=== PATIENT | female | born 2000 | race Caucasian/White ===

== ENCOUNTER 2024-01-31 15:27 | Emergency (ER) | payer SELFPAY ==
[2024-01-31 15:35] VITALS: BP 138/84; PULSE 83; RESP 14; TEMP 36.9; O2SAT 98; BMI 18.1
--- NOTE | 2024-01-31 15:44 | CTR_ITS ---
PROCEDURE INFORMATION: Exam: CT Abdomen And Pelvis With Contrast Exam date and time: 01/31/2024 4:41 PM Age: 23 years old Clinical indication: Abdominal pain; Localized; Left lower quadrant (llq); Patient HX: Bloating and constipation with llq abd pain for two weeks TECHNIQUE: Imaging protocol: Computed tomography of the abdomen and pelvis with contrast. Radiation optimization: All CT scans at this facility use at least one of these dose optimization techniques: automated exposure control; mA and/or kV adjustment per patient size (includes targeted exams where dose is matched to clinical indication); or iterative reconstruction. Contrast material: OMNI 350; Contrast volume: 80 ml; Contrast route: INTRAVENOUS (IV); COMPARISON: No relevant prior studies available. RADIATION DOSE METRICS: Total DLP (mGy-cm): 295 FINDINGS: Liver: No acute findings Gallbladder and bile ducts: Gallbladder mildly distended with mild intrahepatic ductal dilatation, likely postprandial state. No stones or acute inflammation. Pancreas: No ductal dilation. Spleen: No splenomegaly. Adrenal glands: No mass. Kidneys and ureters: No stones or hydronephrosis. Stomach and bowel: No obstruction. Nonspecific fluid-filled loops of small bowel. Appendix: No evidence of appendicitis. Intraperitoneal space: No free air. No significant fluid collection. Vasculature: No abdominal aortic aneurysm. Lymph nodes: No enlarged lymph nodes. Urinary bladder: Incompletely distended. Reproductive: No acute findings. Bones/joints: No acute findings. Soft tissues: No acute findings. CT/CT abdomen pelvis w con* [id number] IMPRESSION: No acute findings.
--- NOTE | 2024-01-31 15:45 | ED_ITS ---
HPI - Abdominal Pain 2 General: Chief Complaint: Abdominal Pain Stated Complaint: lower abd pain Time Seen by Provider: 01/31/24 15:43 History of Present Illness: 23-year-old female comes in today with l ower abdominal pain and constipation. Patient reports on the she was ill with 1 episode of vomiting and then 2 days with the diarrhea. Patient reports since then she has been constipated and have had increasing pressure in her lower abdomen. Patient has a history of ovarian cyst and gastroparesis. Patient appears in mild pain. Patient endorses routine tobacco use smoking 1/2 to 1 pack a day. And daily THC use for pain. Patient describes general body aches that she uses her THC for. Patient denies any [id number] use of medications or laxatives. Patient states some continued nausea but no more vomiting since attempt. MD elicited complaint: abdominal pain Pertinent past history: constipation Onset (ago): day(s) Pain Consistency: constant Location: Diffuse Severity: mild Quality: dull Radiation: none Exacerbating factors: nothing Relieving factors: nothing Associated Symptoms: Reports change in bowel habits and constipation Review of Systems 2 GI: Reports: constipation and change in bowel habits Physical Exam 2 Const: COMMON NORMALS: alert HENMT: HEAD & SCALP: normal to inspection Neck/C-Spine: COMMON NORMALS: full ROM Chest: COMMONS NORMALS: normal inspection of the chest Resp: COMMON NORMALS: normal respiratory effort Cardio: COMMON NORMALS: regular rate RATE: regular rate GI: COMMON NORMALS: Soft to palpation and non-tender PALPATION: Yes Soft to palpation : COMMON NORMALS: Yes no CVA tenderness BLADDER/KIDNEY EXAM: Yes no CVA tenderness Back/Pelvis: COMMON NORMALS: no CVA tenderness and thoracic and lumbar spine normal to inspection Extremity: COMMON NORMALS: full ROM Neuro: SENSORIUM/ORIENTATION: Yes alert Skin: COMMON NORMALS: turgor normal GENERAL SKIN EXAM: turgor normal Course 2 Vital Signs: Vital signs: Vital Signs Temperature 98.4 F 01/31/24 15:35 Pulse Rate 83 01/31/24 15:35 Respiratory Rate 14 01/31/24 15:35 Blood Pressure 138/84 01/31/24 15:35 Pulse Oximetry 98 01/31/24 15:35 Oxygen Delivery Me thod Room Air 01/31/24 15:35 MDM - Abdominal Pain Medical Decision Making 23-year-old female comes in today with lower abdominal pain generalized. Patient reports pain is dull. Patient also reports some persistent nausea. Patient has a medical history for gastroparesis and ovarian cyst. On exam abdomen is soft with generalized tenderness. Bowel sounds are decreased. No CVA tenderness. Vital signs are normal. Differential diagnosis includes but not limited to constipation, ovarian cyst, UTI, dehydration, colitis. CBC and CMP were unremarkable. CT of the abdomen pelvis noted no acute abnormalities. Patient was given 1 L of IV fluids and 4 mg of Zofran with improvement of symptoms. Patient was encouraged to drink plenty of water and fluids. Patient recommended to follow-up with primary care or return to ER for worsening symptoms. Patient reported understanding. Lab Data 01/31/24 15:54 01/31/24 15:54 Labs/Radiology: Radiology Impressions Abdomen/Pelvis CT 01/31/24 15:44 IMPRESSION: No acute findings. Laboratory Results WBC 8.23 10^3/uL (3.29-11.43) 01/31/24 15:54 RBC 4.74 10^6/uL (3.85-5.65) 01/31/24 15:54 Hgb 15.90 g/dL (11.27-16.99) 01/31/24 15:54 Hct 45.7 % (36-47) 01/31/24 15:54 MCV 96.4 fl (85-98) 01/31/24 15:54 MCH 33.5 pg (27-33) H 01/31/24 15:54 MCHC 34.8 g/dL (30-55) 01/31/24 15:54 RDW 12.4 % (12.1-15.1) 01/31/24 15:54 Plt Count 330 10^3/cmm (157-399) 01/31/24 15:54 MPV 9.6 fL (7.4-10.4) 01/31/24 15:54 Neut % (Auto) 68.5 % 01/31/24 15:54 Lymph % (Auto) 23.3 % 01/31/24 15:54 [place] % (Auto) 6.1 % 01/31/24 15:54 Eos % (Auto) 1.0 % 01/31/24 15:54 Baso % (Auto) 1.0 % 01/31/24 15:54 Neut # (Auto) 5.64 10^3/uL (1.8-7.7) 01/31/24 15:54 Lymph # (Auto) 1.9 10^3/uL (0.8-4.8) 01/31/24 15:54 [place] # (Auto) 0.5 10^3/uL (0.2-0.9) 01/31/24 15:54 Eos # (Auto) 0.1 10^3/uL (0.0-0.8) 01/31/24 15:54 Baso # (Auto) 0.1 10^3/uL (0.0-0.1) 01/31/24 15:54 Nucleated RBC % (auto) 0 % 01/31/24 15:54 Nucleated RBCs # 0.0 /100WBC 01/31/24 15:54 Sodium 138 mmol/L (136-145) 01/31/24 15:54 Potassium 4.6 mmol/L (3.5-5.1) 01/31/24 15:54 Chloride 100 mmol/L (98-107) 01/31/24 15:54 Carbon Dioxide 27 mmol/L (22-29) 01/31/24 15:54 Anion Gap 15.6 (5-19) 01/31/24 15:54 BUN 10 mg/dL (6-20) 01/31/24 15:54 Creatinine 0.6 mg/dL (0.5-0.9) 01/31/24 15:54 GFR Calculation 121.8 mL/min (90-130) 01/31/24 15:54 Glucose 85 mg/dL (65-115) 01/31/24 15:54 Calculated Osmolality 284 mOsm/kg (285-295) L 01/31/24 15:54 Calcium 10.3 mg/dL (8.5-10.5) 01/31/24 15:54 Total Bilirubin 0.9 mg/dL (0.15-1.2) 01/31/24 15:54 AST 24 U/L (0-32) 01/31/24 15:54 ALT 26 U/L (0-33) 01/31/24 15:54 Alkaline Phosphatase 68 U/L (35-105) 01/31/24 15:54 C-Reactive Protein 3.0 mg/L (0.0-4.9) 01/31/24 15:54 Total Protein 8.1 g/dL (6.6-8.7) 01/31/24 15:54 Albumin 5.1 g/dL (3.5-5.2) 01/31/24 15:54 Globulin 3.0 g/dL (1.3-4.6) 01/31/24 15:54 Lipase 58 U/L (13-60) 01/31/24 15:54 HCG, Qual Negative (Negative) 01/31/24 15:54 Urine Color Yellow (Yellow) 01/31/24 15:45 Urine Appearance Clear (CLEAR) 01/31/24 15:45 Urine pH 6.5 (5-7) 01/31/24 15:45 Ur Specific [place] 1.015 (1.005-1.030) 01/31/24 15:45 Urine Protein Neg (Negative) 01/31/24 15:45 Urine Glucose (UA) Norm (Normal) 01/31/24 15:45 Urine Ketones Negative (Negative) 01/31/24 15:45 Urine Blood Neg (Negative) 01/31/24 15:45 Urine Nitrate Negative (Negative) 01/31/24 15:45 Urine Bilirubin Neg (Negative) 01/31/24 15:45 Urine Urobilinogen 1 mg/dL (Negative) H 01/31/24 15:45 Ur Leukocyte Esterase Negative (Negative) 01/31/24 15:45 All radiology interpretation(s) finalized by discharge Discharge Plan Discharge Patient Disposition: Home Clinical Impression: Abdominal pain Qualifiers: Abdominal location: generalized Qualified Code(s): R10.84 - Generalized abdominal pain Condition: Stable Prescriptions: New ondansetron 4 mg tablet,disintegrating 4 mg PO Q8H PRN (Reason: nausea and vomiting) Qty: 7 0RF Discharge Orders: Discharge ED (Routine); Ordered 01/31/24 Ordered By: Jf Zapata Referrals: STEVE WASHBURN MD [Family Provider] - Discharge Diet: Usual diet Discharge Activity: Increase activity as tolerated Patient Instructions: Abdominal Pain (ED) Activity Restrictions/Additional Instructions: Drink plenty of water and fluids.Healthy diet and activity. Follow-up with primary care for further instructions. Return to the emergency department for worsening symptoms such as high fever greater than 100.4, inability to hold fluids down, blood in vomit or stool. Coding Level of Care Code ED Pack Press Operator for Mark Hadley
[2024-01-31 15:54] LABS: Add Urine Microscopic? NO; Charge for UA Resulting for Rev
[2024-01-31 16:00] LABS: Bilirubin Urine Neg (Negative); Blood Urine Neg (Negative); Glucose Urine UA Norm (Normal); Ketones Urine Negative (Negative); Leukocyte Esterase Urine Negative (Negative); Nitrate Urine Negative (Negative); Protein Urine Neg (Negative); Specific Gravity, Urine 1.015 (1.005-1.030); Urine Appearance Clear (CLEAR); Urine Color Yellow (Yellow); Urobilinogen Urine 1 mg/dL (Negative); pH Urine 6.5 (5-7)
[2024-01-31] MEDS: sodium chloride 0.9% 1,000 ML 999 ML IV (16:01)
[2024-01-31] MEDS: ondansetron 2 mg/ML SDV 2 mL 4 MG IVP (16:02)
[2024-01-31 16:09] LABS: Basophils # 0.1 10^3/uL (0.0-0.1); Eosinophils # 0.1 10^3/uL (0.0-0.8); Hematocrit 45.7 % (36-47); Lymphocytes # 1.9 10^3/uL (0.8-4.8); Lymphocytes % 23.3 %; Mean Corpuscular HGB Conc 34.8 g/dL (30-55); Mean Corpuscular Hemoglobin 33.5 pg (27-33); Mean Corpuscular Volume 96.4 fl (85-98); Mean Platelet Volume 9.6 fL (7.4-10.4); Monocytes # 0.5 10^3/uL (0.2-0.9); Monocytes % 6.1 %; Neutrophils # 5.64 10^3/uL (1.8-7.7); Neutrophils % 68.5 %; Nucleated Red Blood Cells % 0 %; Platelet Count 330 10^3/cmm (157-399); Red Blood Count 4.74 10^6/uL (3.85-5.65); Red Cell Distribution Width 12.4 % (12.1-15.1); White Blood Count 8.23 10^3/uL (3.29-11.43)
[2024-01-31 16:28] LABS: Alanine Aminotransferase 26 U/L (0-33); Albumin Level 5.1 g/dL (3.5-5.2); Alkaline Phosphatase 68 U/L (35-105); Anion Gap 15.6 (5-19); Aspartate Amino Transferase 24 U/L (0-32); Blood Urea Nitrogen 10 mg/dL (6-20); Calcium 10.3 mg/dL (8.5-10.5); Carbon Dioxide 27 mmol/L (22-29); Chloride 100 mmol/L (98-107); Creatinine Clr Calc Pharmacy 113.8371; Glomerular Filtration Rate 121.8 mL/min (90-130); Glucose 85 mg/dL (65-115); Lipase 58 U/L (13-60); Osmolality Calculated 284 mOsm/kg (285-295); Potassium 4.6 mmol/L (3.5-5.1); Sodium 138 mmol/L (136-145); Total Bilirubin 0.9 mg/dL (0.15-1.2); Total Protein 8.1 g/dL (6.6-8.7)
[2024-01-31 16:34] LABS: HCG, Serum Qual Negative (Negative)
[2024-01-31] MEDS: iohexol 350 mg/mL 500 mL Btl (per mL) IV (16:44)
[2024-01-31 18:04] VITALS: BP 111/72; PULSE 79; RESP 16; TEMP 36.9; O2SAT 100
== END 2024-01-31 18:05 | disposition home or self-care (01) ==
PROVIDERS: Emergency Medicine; Emergency Provider Nurse Practitioner Family
DX: R10.84 Generalized abdominal pain (principal)
CPT/HCPCS: 74177; 80053; 81003; 83690; 84703; 85025; 86140; 96361; 96374; 99285; J2405; J7030; Q9967

== ENCOUNTER 2024-05-09 13:36 | Emergency (ER) | payer SELFPAY ==
[2024-05-09 13:42] VITALS: BP 108/70; PULSE 61; RESP 16; TEMP 36.4; O2SAT 99; BMI 20.2
[2024-05-09 15:52] LABS: Basophils # 0.1 10^3/uL (0.0-0.1); Basophils % 0.4 %; Eosinophils # 0.1 10^3/uL (0.0-0.8); Eosinophils % 0.5 %; Hematocrit 40.9 % (36-47); Lymphocytes # 1.1 10^3/uL (0.8-4.8); Lymphocytes % 8.1 %; Mean Corpuscular HGB Conc 34.5 g/dL (30-55); Mean Corpuscular Hemoglobin 33.3 pg (27-33); Mean Corpuscular Volume 96.7 fl (85-98); Mean Platelet Volume 9.5 fL (7.4-10.4); Monocytes # 0.6 10^3/uL (0.2-0.9); Monocytes % 4.2 %; Neutrophils # 11.33 10^3/uL (1.8-7.7); Neutrophils % 86.4 %; Nucleated Red Blood Cells % 0 %; Platelet Count 236 10^3/cmm (157-399); Red Blood Count 4.23 10^6/uL (3.85-5.65); Red Cell Distribution Width 12.2 % (12.1-15.1)
[2024-05-09 16:02] LABS: HCG, Serum Qual Negative (Negative)
[2024-05-09 16:06] LABS: Alanine Aminotransferase 16 U/L (0-33); Albumin Level 4.6 g/dL (3.5-5.2); Alkaline Phosphatase 52 U/L (35-105); Anion Gap 14.4 (5-19); Aspartate Amino Transferase 16 U/L (0-32); Blood Urea Nitrogen 12 mg/dL (6-20); Calcium 8.9 mg/dL (8.5-10.5); Carbon Dioxide 26 mmol/L (22-29); Chloride 103 mmol/L (98-107); Globulin 2.2 g/dL (1.3-4.6); Glomerular Filtration Rate 120.8 mL/min (90-130); Glucose 95 mg/dL (65-115); Lipase 53 U/L (13-60); Osmolality Calculated 288 mOsm/kg (285-295); Potassium 4.4 mmol/L (3.5-5.1); Sodium 139 mmol/L (136-145); Total Bilirubin 0.7 mg/dL (0.15-1.2); Total Protein 6.8 g/dL (6.6-8.7)
--- NOTE | 2024-05-09 16:42 | USR_ITS ---
PROCEDURE INFORMATION: Exam: US Pelvis, Complete, Non-Obstetric Exam date and time: 05/09/2024 5:17 PM Age: 24 years old Clinical indication: Pelvic pain; Additional info: Llq and pelvic pain, associated with menses TECHNIQUE: Imaging protocol: Transabdominal pelvic nonobstetric ultrasound. Complete exam. Real time ultrasound with image documentation. COMPARISON: CT abdomen pelvis w con* [id number] 01/31/2024 4:41 PM FINDINGS: Uterus: Anteverted uterus measures 7.5 x 3.7 x 3.3 cm. No myometrial mass lesion. Endocavitary fluid collection. Endometrium not significantly thickened, measuring up to 7 mm. Right ovary/adnexa: Right ovary measures 2.8 x 2 x 1.6 cm with prominent central parenchyma and peripherally arranged small follicles. Normal color and spectral arterial flow. Left ovary/adnexa: Left ovary measures 4.3 x 2.8 x 2.1 cm and contains a small complex lesion up to 2.3 x 2 x 1.5 cm, suggestive of hemorrhagic cyst remnant. Normal color and spectral arterial flow demonstrated. Prominent central ovarian parenchyma with peripherally arranged follicles noted. Intraperitoneal space: No intraperitoneal fluid. Urinary bladder: Normal. US/US pelvic complete* [id number] IMPRESSION: 1. A 2.3 x 2 x 1.5 cm left ovarian lesion likely hemorrhagic cyst or endometrioma. Follow-up in 2-3 months recommended. 2. Bilaterally prominent central ovarian parenchyma with peripheral follicles may suggest polycystic ovarian syndrome in the appropriate clinical setting. 3. No sonographic evidence of torsion at this time.
[2024-05-09 16:43] VITALS: BP 114/65; PULSE 96; RESP 16; O2SAT 100
--- NOTE | 2024-05-09 16:43 | PC.NURSE ---
this nurse assumed pt care at 1643 when pt was brought back to room 1.
[2024-05-09 17:23] LABS: Charge for UA Resulting for Rev
--- NOTE | 2024-05-09 17:26 | W.ED.ABDPA2 ---
HPI - Abdominal Pain General: Chief Complaint: Abdominal Pain Stated Complaint: abd pain Time Seen by Provider: 05/09/24 16:38 History of Present Illness: 24-year-old female presents emergency room with lower abdominal pain. She had a similar type issue a month or so ago and had a workup that was negative including a CT scan. She said she is been having some pelvic and left lower quadrant pain over the last couple of weeks became very severe today when she started her period. No nausea or vomiting. No diarrhea. No dysuria. Related Data Previous Rx's Medication Instructions Recorded ondansetron 4 mg disintegrating 4 mg PO Q8H PRN nausea and 01/31/24 tablet vomiting #7 tabs diclofenac sodium 50 mg 50 mg PO BID PRN pain #14 tabs 05/09/24 tablet,delayed release ondansetron 8 mg disintegrating 8 mg PO Q6H #14 tabs 05/09/24 tablet Allergies Allergy/AdvReac Type Severity Reaction Status Date / Time No Known Allergies Allergy Verified 01/31/24 15:41 Review of Systems Narrative: Constitutional symptoms: Negative except as documented in HPI. Skin symptoms: Negative except as documented in HPI. Eye symptoms: Negative except as documented in HPI. ENMT symptoms: Negative except as documented in HPI. Respiratory symptoms: Negative except as documented in HPI. Cardiovascular symptoms: Negative except as documented in HPI. Gastrointestinal symptoms: Negative except as documented in HPI. Genitourinary symptoms: Negative except as documented in HPI. Musculoskeletal symptoms: Negative except as documented in HPI. Neurologic symptoms: Negative except as documented in HPI. Psychiatric symptoms: Negative except as documented in HPI. Endocrine symptoms: Negative except as documented in HPI. Physical Exam Narrative: EXAM NARRATIVE: General: Alert, no acute distress. Skin: Warm, dry. Head: Normocephalic, atraumatic. Neck: Supple, trachea midline. Eye: Extraocular movements are intact. Ears, nose, mouth and throat: mucosa moist. Cardiovascular: Regular, Normal peripheral perfusion. Respiratory: Lungs are clear to auscultation, respirations are non-labored, breath sounds are equal, Symmetrical chest wall expansion. Gastrointestinal: Soft, some suprapubic and left lower quadrant/adnexal pain, Non distended Musculoskeletal: Normal ROM, no deformity. Neurological: Alert and oriented, No focal neurological deficit observed. Psychiatric: Cooperative, appropriate mood & affect. Course Vital Signs: Vital signs: Vital Signs Temperature 97.5 F L 05/09/24 13:42 Pulse Rate 67 05/09/24 18:07 Respiratory Rate 16 05/09/24 18:07 Blood Pressure 102/71 05/09/24 18:07 Pulse Oximetry 100 05/09/24 18:07 Oxygen Delivery Me thod Room Air 05/09/24 18:07 MDM - Abdominal Pain Medical Decision Making Medical decision making: Differential diagnosis including but not limited to and based on the above HPI, review of systems and physical exam: In this patient has had a CT scan that was negative the same pain and he was having left lower quadrant pain is most likely related to female reproductive system. Basic lab work is been ordered and urinalysis to rule out infection or hematuria that might indicate kidney stones. Ordering an ultrasound of the pelvis to look at possible pathologies of the uterus and ovaries. Orders placed to evaluate differential diagnosis based on the above differential, HPI and physical exam Ultrasound of the pelvis: There is a 2 x 2 x 1.5 cm ovarian lesion that is likely hemorrhagic cyst. They recommend follow-up in 2 to 3 months. Lab Review: Laboratory results were reviewed and interpreted by myself the emergency room physician. Lab work is fairly unremarkable. Mild leukocytosis. No anemia. No renal failure. Urinalysis is clear. Urine test is negative. I reviewed the patient's medical record. Reexamination: Patient remained stable. No increased work of breathing. No altered mental status. No focal motor deficits. Assessment and plan: Hemorrhagic ovarian cyst Possible polycystic ovarian syndrome. ? Toradol and Zofran in the emergency room - Discharged home - Discussed plan with patient. Answered any questions. - Evaluation and treatment of this problem were appropriate in the emergency setting. Lab Data 05/09/24 15:43 05/09/24 15:43 Labs/Radiology: Radiology Impressions Pelvis Ultrasound 05/09/24 16:42 IMPRESSION: 1. A 2.3 x 2 x 1.5 cm left ovarian lesion likely hemorrhagic cyst or endometrioma. Follow-up in 2-3 months recommended. 2. Bilaterally prominent central ovarian parenchyma with peripheral follicles may suggest polycystic ovarian syndrome in the appropriate clinical setting. 3. No sonographic evidence of torsion at this time. Laboratory Results WBC 13.10 10^3/uL (3.29-11.43) H 05/09/24 15:43 RBC 4.23 10^6/uL (3.85-5.65) 05/09/24 15:43 Hgb 14.10 g/dL (11.27-16.99) 05/09/24 15:43 Hct 40.9 % (36-47) 05/09/24 15:43 MCV 96.7 fl (85-98) 05/09/24 15:43 MCH 33.3 pg (27-33) H 05/09/24 15:43 MCHC 34.5 g/dL (30-55) 05/09/24 15:43 RDW 12.2 % (12.1-15.1) 05/09/24 15:43 Plt Count 236 10^3/cmm (157-399) 05/09/24 15:43 MPV 9.5 fL (7.4-10.4) 05/09/24 15:43 Neut % (Auto) 86.4 % 05/09/24 15:43 Lymph % (Auto) 8.1 % 05/09/24 15:43 [place] % (Auto) 4.2 % 05/09/24 15:43 Eos % (Auto) 0.5 % 05/09/24 15:43 Baso % (Auto) 0.4 % 05/09/24 15:43 Neut # (Auto) 11.33 10^3/uL (1.8-7.7) H 05/09/24 15:43 Lymph # (Auto) 1.1 10^3/uL (0.8-4.8) 05/09/24 15:43 [place] # (Auto) 0.6 10^3/uL (0.2-0.9) 05/09/24 15:43 Eos # (Auto) 0.1 10^3/uL (0.0-0.8) 05/09/24 15:43 Baso # (Auto) 0.1 10^3/uL (0.0-0.1) 05/09/24 15:43 Nucleated RBC % (auto) 0 % 05/09/24 15:43 Nucleated RBCs # 0.0 /100WBC 05/09/24 15:43 Sodium 139 mmol/L (136-145) 05/09/24 15:43 Potassium 4.4 mmol/L (3.5-5.1) 05/09/24 15:43 Chloride 103 mmol/L (98-107) 05/09/24 15:43 Carbon Dioxide 26 mmol/L (22-29) 05/09/24 15:43 Anion Gap 14.4 (5-19) 05/09/24 15:43 BUN 12 mg/dL (6-20) 05/09/24 15:43 Creatinine 0.6 mg/dL (0.5-0.9) 05/09/24 15:43 GFR Calculation 120.8 mL/min (90-130) 05/09/24 15:43 Glucose 95 mg/dL (65-115) 05/09/24 15:43 Calculated Osmolality 288 mOsm/kg (285-295) 05/09/24 15:43 Calcium 8.9 mg/dL (8.5-10.5) 05/09/24 15:43 Total Bilirubin 0.7 mg/dL (0.15-1.2) 05/09/24 15:43 AST 16 U/L (0-32) 05/09/24 15:43 ALT 16 U/L (0-33) 05/09/24 15:43 Alkaline Phosphatase 52 U/L (35-105) 05/09/24 15:43 Total Protein 6.8 g/dL (6.6-8.7) 05/09/24 15:43 Albumin 4.6 g/dL (3.5-5.2) 05/09/24 15:43 Globulin 2.2 g/dL (1.3-4.6) 05/09/24 15:43 Lipase 53 U/L (13-60) 05/09/24 15:43 HCG, Qual Negative (Negative) 05/09/24 15:43 Urine Color Yellow (Yellow) 05/09/24 16:55 Urine Appearance Clear (CLEAR) 05/09/24 16:55 Urine pH 7.0 (5-7) 05/09/24 16:55 Ur Specific [place] 1.026 (1.005-1.030) 05/09/24 16:55 Urine Protein Trace (Negative) A 05/09/24 16:55 Urine Glucose (UA) Negative (Normal) 05/09/24 16:55 Urine Ketones Negative (Negative) 05/09/24 16:55 Urine Blood Negative (Negative) 05/09/24 16:55 Urine Nitrate Negative (Negative) 05/09/24 16:55 Urine Bilirubin Negative (Negative) 05/09/24 16:55 Urine Urobilinogen 1.0 mg/dL (Negative) 05/09/24 16:55 Ur Leukocyte Esterase Negative (Negative) 05/09/24 16:55 Amorphous Sediment Not Reportable 05/09/24 16:55 All radiology interpretation(s) finalized by discharge Discharge Plan Discharge Patient Disposition: Home Clinical Impression: Hemorrhagic cyst of left ovary Condition: Stable Prescriptions: New ondansetron 8 mg tablet,disintegrating 8 mg PO Q6H Qty: 14 0RF Rx Instructions: Take 1/2-1 tab every 6 hours as needed for nausea and vomiting diclofenac sodium 50 mg tablet,delayed release (DR/EC) 50 mg PO BID PRN (Reason: pain) Qty: 14 0RF No Action ondansetron 4 mg tablet,disintegrating 4 mg PO Q8H PRN (Reason: nausea and vomiting) Qty: 7 0RF Discharge Orders: Discharge ED (Routine); Ordered 05/09/24 Ordered By: Sarah Hutchins Referrals: Nico Owen MD [Physician] - 4-7 days (Please call for an appointment. You need follow-up in the next week or so and you also need a repeat ultrasound of your left ovary in 2 to 3 months) Discharge Diet: Usual diet Discharge Activity: Increase activity as tolerated Patient Instructions: Ovarian Cyst (ED) Activity Restrictions/Additional Instructions: Thank you for choosing [facility] for your healthcare needs today. Please realize this is an emergency room and that we are providing you with a medical screening exam and this may not be complete and all inclusive of all the testing and or work up that you may need to determine your ailment or severity of your illness. You have been screened and evaluated and felt safe for discharge. Health conditions do change or evolve sometimes and as such it is important that you follow up with your Primary Doctor to be re checked, 3-5 days is a general good time frame for follow up. You are always welcome to return to the ED for re assessment if your symptoms are worsening or you have new concerns Coding Level of Care Code ED Field Mechanical Meter Tester for Mark Hadley
[2024-05-09 17:52] LABS: Bilirubin Urine Negative (Negative); Blood Urine Negative (Negative); Glucose Urine UA Negative (Normal); Ketones Urine Negative (Negative); Leukocyte Esterase Urine Negative (Negative); Nitrate Urine Negative (Negative); Protein Urine Trace (Negative); Specific Gravity, Urine 1.026 (1.005-1.030); Urine Appearance Clear (CLEAR); Urine Color Yellow (Yellow)
[2024-05-09 18:07] VITALS: BP 102/71; PULSE 67; RESP 16; O2SAT 100
[2024-05-09 18:31] LABS: Bacteria Urine 1+ /hpf; Mucus Urine 1+ /hpf; RBC Urine 0-4 /hpf (0-2); WBC Urine 0-4 /hpf (0-5)
[2024-05-09] MEDS: ondansetron 2 mg/ML SDV 2 mL 4 MG IVP (18:32)
[2024-05-09 18:33] VITALS: BP 102/71; PULSE 64; RESP 16; O2SAT 100
[2024-05-09] MEDS: ketorolac 30 mg/mL INJ IVP (18:33)
[2024-05-09 18:50] VITALS: BP 111/66; PULSE 69; RESP 16; O2SAT 100
== END 2024-05-09 18:47 | disposition home or self-care (01) ==
PROVIDERS: Physician Assistant; Emergency Provider Emergency Medicine
DX: N83.202 Unspecified ovarian cyst, left side (principal)
CPT/HCPCS: 36415; 76856; 80053; 81003; 81015; 83690; 84703; 85025; 96374; 96375; 99285; J1885; J2405